=== PATIENT | female | born 1965 | race Caucasian/White ===

== ENCOUNTER → 2018-06-15 | Outpatient (CLI) | payer OTHER | LOC: FIMAGING 08:20 | PROVIDERS: ATTEND Obstetrics & Gynecology Gynecology | DX: Z12.31 Encounter for screening mammogram for malignant neoplasm of breast (principal) ==

== ENCOUNTER 2019-02-27 16:12 | Emergency (ER) | payer OTHER ==
--- NOTE | 2019-02-27 16:47 | EDPHY ---
H & P Stated Complaint: sob w exertion . cough for ~ 1 week Time Seen by Provider: 02/27/19 16:18 HPI/ROS: CHIEF COMPLAINT: Shortness of breath, cough History by patient HISTORY OF PRESENT ILLNESS: 53-year-old woman with history of diabetes presents complaining of 4 days of what started with a sore throat and "pharyngitis and "but then developed a dry cough and burning sensation in her throat and upper chest. She tried rubbing fix on her chest for the chest discomfort. She also took ibuprofen yesterday but not today. Yesterday she had a cough productive of yellow sputum. She had a temperature of a 100.8 at home. She has had no nausea vomiting but has had a poor appetite and today she felt excessively fatigued. She denies any body aches. She was exposed to a co- worker who had pneumonia. She quit smoking 25 years ago. She has no prior history of hypertension. She does say her diabetes is been out of control and she has an appointment pending with an cleaning specialist. She has no diagnosis of sleep apnea but her says that she snores and stops breathing at night. She has no prior history of blood clots and she denies any leg pain or swelling. REVIEW OF SYSTEMS: As in HPI, and all other systems reviewed and are negative Source: Patient - Medical/Surgical History Hx Asthma: No Hx Chronic Respiratory Disease: No Hx Diabetes: Yes Hx Cardiac Disease: No Hx Renal Disease: No Hx Cirrhosis: No Hx Alcoholism: No Hx HIV/AIDS: No Hx Splenectomy or Spleen Trauma: No Other PMH: appy. gb. DM 2 - Social History Smoking Status: Former smoker - Physical Exam Exam: General Appearance: Alert, obese, speaking full sentences. Head: normocephalic, atraumatic Eyes: Pupils equal and round, reactive to light, no pallor or injection. Extraocular movements intact Mouth: Mucous membranes moist. No erythema or exudates. Respiratory: Normal, effort, lungs are clear to auscultation. No wheezes, rales or rhonchi. No chest wall tenderness Cardiovascular: Regular rate and rhythm. S1, S2, no murmurs, gallops or rubs appreciated Gastrointestinal: Abdomen is soft and nontender, no masses, bowel sounds normal. Back: No CVA tenderness, no bony tenderness Neurological: Awake, alert and oriented x 3, no pronator drift, normal gait, no pronator drift Skin: Warm and dry, no rashes. Musculoskeletal: No deformities or tenderness. Full range of motion Extremities: no edema, no tenderness, DP2+ bilat Psychiatric: Patient has normal affect, there is no agitation. Constitutional: Initial Vital Signs Temperature (C) 37.7 C 02/27/19 16:20 Heart Rate 92 02/27/19 16:20 Respiratory Rate 16 02/27/19 16:20 Blood Pressure 170/92 H 02/27/19 16:20 O2 Sat (%) 91 L 02/27/19 16:20 O2 Delivery Mode Room Air Allergies/Adverse Reactions: Penicillins Allergy (Intermediate, Verified 02/27/19 16:18) Hives Home Medications: Medication Instructions Recorded Azithromycin 250 mg PO DAILY 4 Days tablet 02/27/19 Chol Med 02/27/19 Glipizide 02/27/19 Metformin 1000 mg 02/27/19 Medical Decision Making - Diagnostics EKG Interpretation: Normal sinus rhythm at a rate of 87 with left axis deviation, flattened T-waves in the anterior leads and poor R-wave progression. Impression: Abnormal EKG. Imaging Results: Imaging Impressions Chest X-Ray 02/27/19 16:42 Impression: 1. Bronchitis/airways disease with streaky basilar opacities more likely related to atelectasis than pneumonia. 2. Elevation of the right hemidiaphragm. ED Course/Re-evaluation: 53-year-old woman with diabetes presents complaining of cough, shortness of breath and fever at home. Patient is afebrile here but has a borderline oxygen saturation of around 91% on room air. While evaluating the patient her oxygen saturation fluctuated between 88 and 97 with a good waveform. ECG showed no evidence of acute ischemia. Labs were notable for sodium just below the lower limit of normal and elevated glucose consistent with her history of diabetes. For blood cell count was within normal limits. Flu was negative. Chest x-ray was read by the radiologist as peribronchial thickening with bronchitis and atelectasis more likely than streaky infiltrates however given the patient's clinical symptoms which are consistent with pneumonia and her recent exposure I think it is likely the patient has an infection I will go ahead and treat her with a Z-Russell. She was given her 1st dose of antibiotics in the ED. Patient was noted incidentally have elevated blood pressure and we discussed the need for follow-up with her primary care physician for this. I am also recommending close follow-up with her primary care physician for re-evaluation later this week given her underlying diabetes and borderline oxygen saturation and immediately return to the emergency department she gets worse in any way or is unable to take her medications. Patient and understand agreeable this plan. - Data Points Laboratory Results: 02/27/19 02/27/19 17:16 17:16 POC Sodium 134 mEq/L L mEq/L (135-145) POC Potassium 4.0 mEq/L mEq/L (3.3-5.0) POC Chloride 97.0 mEq/L mEq/L (97-110) POC Total CO2 29 mEq/L mEq/L (22-31) POC BUN 9 mg/dL mg/dL (7-23) POC Creatinine 0.9 mg/dL mg/dL (0.6-1.0) POC Glucose 410 mg/dL H mg/dL (70-100) POC Calcium 9.4 mg/dL mg/dL (8.5-10.4) POC Troponin I 0.00 ng/mL ng/mL (0.00-0.08) Point of Care Test Results: CBC CBC Collection Date 02/27/19 CBC Collection Time 17:10 WBC 6.93 RBC 5.13 HGB 14.8 HCT 45.0 PLT 267 Neut # 5.22 Neut 75.4 LYMPH # 1.07 LYMPH 15.4 MCV 87.7 Chemistry 02/27/19 02/27/19 17:16 17:16 POC Sodium 134 mEq/L L mEq/L (135-145) POC Potassium 4.0 mEq/L mEq/L (3.3-5.0) POC Chloride 97.0 mEq/L mEq/L (97-110) POC Total CO2 29 mEq/L mEq/L (22-31) POC BUN 9 mg/dL mg/dL (7-23) POC Creatinine 0.9 mg/dL mg/dL (0.6-1.0) POC Glucose 410 mg/dL H mg/dL (70-100) POC Calcium 9.4 mg/dL mg/dL (8.5-10.4) POC Troponin I 0.00 ng/mL ng/mL (0.00-0.08) Departure - Departure Disposition: Home, Routine, Self-Care Clinical Impression: Pneumonia Qualifiers: Pneumonia type: due to unspecified organism Laterality: unspecified laterality Lung location: unspecified part of lung Qualified Code(s): J18.9 - Pneumonia, unspecified organism Condition: Fair Instructions: Bacterial Pneumonia (ED) Additional Instructions: You were seen by Dr. Karishma Benavides today. We are treating you today for pneumonia. Please take azithromycin antibiotics as prescribed. I recommend taking probiotics in between doses of antibiotics. Use a humidifier in the room where you sleep. Try hot drinks with honey. Take ibuprofen 400-600mg 4 times daily and Tylenol 500-1000mg every 6 hours as needed for fever and/or pain. Please follow up with her primary care physician Dr. Kurtz for recheck in the next few days as well as to have your blood pressure we checked which was high today. I also recommend discussing with him the need for a sleep study given your borderline oxygen saturation, snoring and stopping breathing in the night... Return for any worsening or new concerns. Referrals: Pio Kurtz PA [Primary Care Provider] - As per Instructions Prescriptions: Azithromycin 250 mg PO DAILY 4 Days tablet
[2019-02-27] MEDS ORDERED: AZITHROMYCIN 250 MG TAB PO ONE (17:56)
[2019-02-27 18:40] VITALS: BP 161/88
== END 2019-02-27 18:25 | disposition home or self-care (01) ==
LOC: CED 16:12
DX: J18.9 Pneumonia, unspecified organism (principal); J40 Bronchitis, not specified as acute or chronic; E11.9 Type 2 diabetes mellitus without complications; Z87.891 Personal history of nicotine dependence
CPT/HCPCS: 71046-PO; 80048-ER; 84484-ER; 85025-QW-ER; 87400-QW-ER; 99285-ER